=== PATIENT | male | born 1965 | race Two or more races ===

== ENCOUNTER → 2021-10-16 15:02 | Outpatient (BNVA) | payer OTHER, SELFPAY | PROVIDERS: PCP Internal Medicine; Visit Provider Nurse Practitioner Family | DX: G20 Parkinson's disease (principal); R26.9 Unspecified abnormalities of gait and mobility | CPT/HCPCS: 99212 ==

== ENCOUNTER → 2022-04-02 14:14 | Outpatient (BNVA) | payer OTHER, SELFPAY | PROVIDERS: PCP Internal Medicine; Visit Provider Nurse Practitioner Family | DX: G20 Parkinson's disease (principal); R26.9 Unspecified abnormalities of gait and mobility | CPT/HCPCS: 99212 ==

== ENCOUNTER 2022-12-25 12:54 | Outpatient (AMB) | payer OTHER, SELFPAY ==
--- NOTE | 2022-12-25 13:05 | A.OFFVIS_ITS ---
Intake Vital Signs 12/25/22 13:07 Height 5 ft 6 in Weight 148 lb BMI 23.9 Pulse 86 Pulse Source Pulse Oximeter Pulse Oximetry (%) 98 Oxygen Delivery Method Room Air Intake Visit Reasons: Follow up for Parkinsons - Confirmed Intake Note: Patient presents for follow up parkinson's. patient states I want to talk to her about the surgery. Allergies No Known Allergies Allergy (Verified 12/25/22 13:09) Medication List - Last Reconciled 12/25/22 by BROOKE Hurley amantadine HCl 100 mg PO BID 30 days cholecalciferol (vitamin D3) 50 mcg PO DAILY clonazepam 0.25 mg PO BEDTIME PRN gabapentin 100 - 300 mg (1 - 3 x 100 mg) PO BEDTIME 30 days oxycodone-acetaminophen 5-325 mg 1 tab PO DAILY HPI HPI Comments History of Present Illness Details 57-yr-old male presents for f/u visit, accompanied by his partner. Pt denies any significant interval medical history changes. Pt's current PD medication regimen: Amantadine 100mg bid Pt continues to be very shaky. He had one fall- his chair back broke. He continues to have BLE, more so LLE, numbness especially when sitting for a while. He can be slow, stiff, again if sitting too long. Riding his bicycles in his driveway is helpful. He has been having some neck tightness and lower occipital headache. Often responds to Advil. [facility] Medical History Anxiety Vitamin D deficiency Social History Alcohol intake: never Patient Tobacco Use Status: Never used Tobacco Review of Systems Const All systems reviewed & are unremarkable except as noted in HPI and below Physical Exam Vital Signs: Last Vital Signs Pulse 86 12/25/22 13:07 Pulse Ox 98 12/25/22 13:07 Oxygen Delivery Method Room Air 12/25/22 13:07 BMI result Body Mass Index 23.9 Const General: cooperative and no acute distress Resp Effort & Inspection: normal respiratory effort and able to speak in complete sentences Neuro Other: Expression: Decreased expression and blink Voice: Soft voice Tremor: BUE rest and postural tremor Tone: BUE tone Dyskinesia: None FFM: Bradykinesia, more so on left Foot taps: Bradykinesia, more so on left Gait: Slow to stand, stooped, no arm swing, short steps with bent knees, steady w/ cane. Psych: Pleasant affect General: patient oriented x3 Assessment & Plan Assessment & Plan (1) Parkinson's disease: Code(s): G20 - Parkinson's disease (2) Tremor: Code(s): R25.1 - Tremor, unspecified (3) Gait difficulty: Code(s): R26.9 - Unspecified abnormalities of gait and mobility (4) Cervicalgia: Code(s): M54.2 - Cervicalgia Plan Trial trihexyphenidal 1mg qd x;s 1 wk, then 1 mg bid x's 1 wk, then 1mg tid. Gabapentin 100-300mg qhs. Continue Amantadine 100mg bid. Pt advised to undergo baseline neuro-psych eval- to assess eligibility for DBS. Monitor BLE numbness- pt declines further work-up For neck pain and headache- offered PT, pt declined. May yun prn Advil, warm packs x's 20 min. Previous trials- Rytary- caused GI upset and nausea. CD-LD- not tolerated. Future considerations: Gocovri. Gallegos. Follow-up in 3 months. Orders: Referrals Neuropsychiatry Referral G20 - Parkinson's disease Medications: New trihexyphenidyl 1/2 tab daily x's 1 week, then 1/2 tab bid x's 1 week, then 1/2 tab tid orally .; give with food (meal/snack) 30 days 45 tabs 3RF Coding Level of Care Code Est Pt Level 4 (60216) Diagnoses Parkinson's disease G20 Tremor R25.1 Gait difficulty R26.9 Cervicalgia M54.2
[2022-12-25 13:07] VITALS: PULSE 86; O2SAT 98; BMI 23.9
== END 2022-12-25 13:46 | disposition home or self-care (01) ==
PROVIDERS: Visit Provider Nurse Practitioner Family
DX: G20 Parkinson's disease (principal); R25.1 Tremor, unspecified; R26.9 Unspecified abnormalities of gait and mobility; M54.2 Cervicalgia
CPT/HCPCS: 99214

== ENCOUNTER → 2022-12-25 12:54 | Outpatient (BNVA) | payer OTHER, SELFPAY | PROVIDERS: Visit Provider Nurse Practitioner Family | DX: G20 Parkinson's disease (principal); M54.2 Cervicalgia; Z79.899 Other long term (current) drug therapy | CPT/HCPCS: 99212 ==

== ENCOUNTER 2023-05-26 13:42 | Outpatient (AMB) | payer OTHER, SELFPAY ==
--- NOTE | 2023-05-26 14:01 | MHC.OFFVIS ---
Intake Vital Signs 05/26/23 14:07 Height 5 ft 6 in Weight 151 lb BMI 24.4 BP 126/84 Blood Pressure Location Rt brachial Position Sitting Pulse 97 Pulse Source Pulse Oximeter Pulse Oximetry (%) 106 H Oxygen Delivery Method Room Air Intake Visit Reasons: 3m Follow up for Parkinsons - CONF Intake Note: Patient presents for follow up parkinson's. Patient states Everything's the same, nothing to report Allergies No Known Allergies Allergy (Verified 05/26/23 14:08) Medication List - Last Reconciled 05/26/23 by BROOKE Hurley amantadine HCl 150 mg (1.5 x 100 mg) PO BID 30 days benztropine 0.5 mg orally qd x's 1 week, then bid; 30 days cholecalciferol (vitamin D3) 50 mcg PO DAILY clonazepam 0.25 mg PO BEDTIME PRN gabapentin 100 - 300 mg (1 - 3 x 100 mg) PO BEDTIME 30 days oxycodone-acetaminophen 5-325 mg 1 tab PO DAILY HPI HPI Comments History of Present Illness Details 57-yr-old male presents for f/u visit, accomapnied by his . Pt denies any significant interval medical history changes. Pt's current PD medication regimen: Amantadine 100mg qam and 50mg q afternoon. Pt did not tolerate Artane, and the was tried on Benzotropine which pt did not tolerate. Pt continues to have significant tremor. He can be slow He can be stiff No hallucinations. Gait is slow. Trying to be active, Using Gabapentin for BLE paresthesias. [facility] Medical History (Updated 06/07/23 @ 22:42 by BROOKE Hurley) Parkinson's disease Vitamin D deficiency Anxiety Social History Alcohol intake: never Patient Tobacco Use Status: Never used Tobacco Review of Systems Const All systems reviewed & are unremarkable except as noted in HPI and below Physical Exam Vital Signs: Last Vital Signs Pulse 97 05/26/23 14:07 BP 126/84 05/26/23 14:07 Pulse Ox 106 H 05/26/23 14:07 Oxygen Delivery Method Room Air 05/26/23 14:07 BMI result Body Mass Index 24.4 Const General: cooperative and no acute distress Resp Effort & Inspection: normal respiratory effort and able to speak in complete sentences Neuro Other: General: A&O x's 3 Expression: Decreased expression and blink Voice: Soft voice Tremor: BUE rest and postural tremor Tone: BUE tone Dyskinesia: None FFM: Bradykinesia, more so on left Foot taps: Bradykinesia, more so on left Gait: Slow to stand, stooped, no arm swing, short steps with bent knees, steady w/ cane. Psych: Pleasant affect Assessment & Plan Assessment & Plan (1) Parkinson's disease without dyskinesia: Code(s): G20.A1 - Parkinson's disease without dyskinesia, without mention of fluctuations (2) Tremor: Code(s): R25.1 - Tremor, unspecified (3) Gait difficulty: Code(s): R26.9 - Unspecified abnormalities of gait and mobility Plan Stop trihexyphenidal and benzotropine- not tolerated. Increase Amantadine up to 150mg bid Gabapentin 100-300mg qhs. Pt advised to undergo baseline neuro-psych eval- to assess eligibility for DBS- on wait list. Monitor BLE numbness- pt declines further work-up For neck pain and headache- monitor. Previous trials- Rytary- caused GI upset and nausea. CD-LD- not tolerated. Future considerations: Jenny. Follow-up in 3-4 months. Medications: Refilled amantadine HCl 150 mg (1.5 x 100 mg) PO BID 90 tabs 5RF 30 days Coding Level of Care Code Est Pt Level 4 (49719) Diagnoses Parkinson's disease without dyskinesia G20.A1 Tremor R25.1 Gait difficulty R26.9
[2023-05-26 14:07] VITALS: BP 126/84; PULSE 97; O2SAT 106; BMI 24.4
== END 2023-05-26 14:37 | disposition home or self-care (01) ==
PROVIDERS: PCP Internal Medicine; Visit Provider Nurse Practitioner Family
DX: G20.A1 Parkinson's disease without dyskinesia, without mention of fluctuations (principal); R26.9 Unspecified abnormalities of gait and mobility
CPT/HCPCS: 99214

== ENCOUNTER → 2023-05-26 13:42 | Outpatient (BNVA) | payer OTHER, SELFPAY | PROVIDERS: PCP Internal Medicine; Visit Provider Nurse Practitioner Family | DX: G20.A1 Parkinson's disease without dyskinesia, without mention of fluctuations (principal); R26.9 Unspecified abnormalities of gait and mobility; Z79.899 Other long term (current) drug therapy | CPT/HCPCS: 99212 ==

== ENCOUNTER 2024-05-12 12:52 | Outpatient (AMB) | payer OTHER, SELFPAY ==
[2024-05-12 13:03] VITALS: BP 126/78; PULSE 106; O2SAT 98; BMI 25.4
--- NOTE | 2024-05-12 13:03 | A.OFFVIS_ITS ---
Vital Signs 05/12/24 13:03 Height 5 ft 6 in Weight 157 lb 8 oz BMI 25.4 BP 126/78 Blood Pressure Location Lt brachial Position Sitting Pulse 106 H Pulse Source Pulse Oximeter Pulse Oximetry (%) 98 Oxygen Delivery Method Room Air Intake Visit Reasons: Follow up Allergies No Known Allergies Allergy (Verified 05/12/24 13:08) Medication List - Last Reconciled 05/12/24 by BROOKE Hurley amantadine HCl 150 mg (1.5 x 100 mg) PO BID 30 days benztropine 0.5 mg orally qd x's 1 week, then bid; 30 days cholecalciferol (vitamin D3) 50 mcg PO DAILY clonazepam 0.25 mg PO BEDTIME PRN gabapentin 100 - 300 mg (1 - 3 x 100 mg) PO BEDTIME 30 days oxycodone-acetaminophen 5-325 mg 1 tab PO DAILY HPI Comments Details: 58-yr-old male presents for f/u visit for Parkinson's disease, accomapnied by his . Pt denies any significant interval medical history changes. Pt's current PD medication regimen: Amantadine 150mg bid. ADL's: Needs assist Swallowing: Needs to eat slowly Drooling: Denies Orthostatic lightheadedness: Denies Constipation: Denies Urinary symptoms: States he is taking an OAB tx. Tremor: Continues to have tremor Dyskinesia: None Stiffness: His arms and legs become stiff, tight, and numbness- like falling asleep. Gabapentin for BLE paresthesias. His neck can be tight and sore. Gait changes: States his walking is ok- sometimes walks better than others. Freezing: Sometimes he becomes stuck in the shower- he is awaiting a shower chair from [facility]. Falls: He states he falls all the time, but falls and gets up. May have difficulty going up the stairs. Mood: He can be anxious Hallucinations: Denies Memory: No issues Sleep: Sleeping well Exercise: Riding a pedal bicycle in his room. [facility] Medical History Parkinson's disease Vitamin D deficiency Anxiety Social History Alcohol intake: never Patient Tobacco Use Status: Never used Tobacco Physical Exam Vital Signs: Last Vital Signs Pulse 106 H 05/12/24 13:03 BP 126/78 05/12/24 13:03 Pulse Ox 98 05/12/24 13:03 Oxygen Delivery Method Room Air 05/12/24 13:03 BMI result Body Mass Index 25.4 Const General: cooperative and no acute distress Resp Effort & Inspection: normal respiratory effort and able to speak in complete sentences Neuro Other: General: A&O x's 3 Expression: Decreased expression and blink Voice: Soft voice Tremor: BUE rest and postural tremor Tone: BUE tone, more so on left Dyskinesia: None FFM: Bradykinesia, more so on left Foot taps: Bradykinesia, more so on left Posture: Patient has more stooped today w/ signs of anterocollis. Gait: Slow to stand, stooped, no arm swing, short steps with bent knees, steady w/ cane. Psych: Pleasant affect Assessment & Plan Assessment & Plan (1) Parkinson's disease without dyskinesia: Code(s): G20.A1 - Parkinson's disease without dyskinesia, without mention of fluctuations Category: Medical (2) Tremor: Code(s): R25.1 - Tremor, unspecified Category: Medical (3) Gait difficulty: Code(s): R26.9 - Unspecified abnormalities of gait and mobility Category: Medical Plan Increase Amantadine from 150mg bid to 150mg bid (am and early afternoon/afternoon) and 100mg q afternoon. Resume Gabapentin 100-300mg qhs (or 100mg tid) for paresthesias, headache, and neck pain. Pt believes he had baseline neuro-psych eval- will try to locate results. Offered PT- pt declines at this time. Patient encouraged to increase regular physical activity, and to work on his posture and upper body range of motion. Monitor BLE numbness- pt declines further work-up Previous trials- Rytary- caused GI upset and nausea. CD-LD- not tolerated. Trihexyphenidal and benzotropine- not tolerated. Future considerations: Gocovri. Vyalev- may be better tolerated than oral CD-LD. Pt to follow-up in 6 months or sooner prn. Medications: Changed From amantadine HCl 150 mg (1.5 x 100 mg) PO BID 30 days 90 tabs 6RF To amantadine HCl 150mg bid (early and late am) and 100mg qd in afternoon orally .; 120 tabs 6RF 30 days Refilled gabapentin 100 - 300 mg (1 - 3 x 100 mg) PO BEDTIME 90 caps 6RF 30 days Discontinued benztropine Discontinued Reason: Doctor's Order 0.5 mg orally qd x's 1 week, then bid; 30 days 30 tabs 1RF Scribe Plan - Not visible on output: Discussed importance of regular physical activity for management of PD s/s, such as walking, cycling, boxing. Discussed benefits of dopaminergic therapies, such as reduced tremor and improved motor symptoms. Discussed potential adverse effects of dopaminergic therapies, including but not limited to nause/GI upset, orthostatic lightheadedness, dyskineisas, sleepiness, hallucinations. Pt is advised to establish care with a tie up worker due to slight increase risk of melanoma seen in patient's with Parkinson's disease. Coding Level of Care Code Est Pt Level 4 (40614) Diagnoses Parkinson's disease without dyskinesia G20.A1 Tremor R25.1 Gait difficulty R26.9
== END 2024-05-12 14:00 | disposition home or self-care (01) ==
PROVIDERS: PCP Internal Medicine; Visit Provider Nurse Practitioner Family
DX: G20.A1 Parkinson's disease without dyskinesia, without mention of fluctuations (principal); R26.9 Unspecified abnormalities of gait and mobility
CPT/HCPCS: 99214

== ENCOUNTER → 2024-05-12 12:52 | Outpatient (BNVA) | payer OTHER, SELFPAY | PROVIDERS: PCP Internal Medicine; Visit Provider Nurse Practitioner Family | DX: G20.A1 Parkinson's disease without dyskinesia, without mention of fluctuations (principal); R26.9 Unspecified abnormalities of gait and mobility | CPT/HCPCS: 99212 ==

== ENCOUNTER 2024-11-15 13:27 | Outpatient (AMB) | payer OTHER, SELFPAY ==
[2024-11-15 13:48] VITALS: BMI 24.4
--- NOTE | 2024-11-15 13:48 | A.OFFVIS_ITS ---
Vital Signs 11/15/24 13:48 Height 5 ft 6 in Weight 151 lb BMI 24.4 Intake Visit Reasons: 6 mo follow up [place] Required: No Accompanied by: Spouse Allergies No Known Allergies Allergy (Verified 11/15/24 13:52) Medication List - Last Reconciled 11/15/24 by BROOKE Hurley amantadine HCl 150mg bid (early and late am) and 100mg qd in afternoon orally .; 30 days cholecalciferol (vitamin D3) 50 mcg PO DAILY clonazepam 0.25 mg PO BEDTIME PRN gabapentin 100 - 300 mg (1 - 3 x 100 mg) PO BEDTIME 30 days oxycodone-acetaminophen 5-325 mg 1 tab PO DAILY ropinirole 0.25 mg PO TID 30 days HPI Comments Details: 58-yr-old male presents for f/u visit for Parkinson's disease, accomapnied by his . Pt denies any significant interval medical history changes. Pt reports his PD s/s are stable. After last visit, he did increase the amantadine to 200 mg twice a day. Pt's current PD medication regimen: Amantadine 200mg bid. ADL's: Needs assist Swallowing: Needs to eat slowly Drooling: Denies Orthostatic lightheadedness: Denies Constipation: Denies Urinary symptoms: States he is taking an OAB tx. Tremor: Continues to have tremor Dyskinesia: None Stiffness: His arms and legs become stiff, tight, and numbness, notices more so when using his bike- like falling asleep. Gabapentin has been helpful for BLE paresthesias and neck tightness and soreness Gait changes: States his walking is ok- sometimes walks better than others. Freezing: He is still prone to becoming stuck. Falls: He states he still is prone to falls, but falls and gets up. Mood: He can be anxious. Patient notes that the last time he flight, he had a significant anxiety attack, which subsided when he took 1 of his 's anxiety medications, however he has been fearful to fly since. However he notes that his would really like to be able to take vacations again. Hallucinations: Denies Memory: No issues Sleep: Sleeping well Exercise: Riding a pedal bicycle in his room. [facility] Medical History Parkinson's disease Vitamin D deficiency Anxiety Social History Alcohol intake: never Patient Tobacco Use Status: Never used Tobacco Physical Exam Vital Signs: BMI result Body Mass Index 24.4 Const General: cooperative and no acute distress Resp Effort & Inspection: normal respiratory effort and able to speak in complete sentences Neuro Other: General: A&O x's 3 Expression: Decreased expression and blink Voice: Soft voice, as he talks longer there is mild stuttering/stumbling on his words. Tremor: BUE rest and postural tremor Tone: BUE tone, more so on left. BLE tone, most notable in ankles Dyskinesia: None FFM: Bradykinesia, more so on left Foot taps: Bradykinesia, more so on left Posture: Stooped w/ mild anterocollis. Gait: Slow to stand, stooped, no arm swing, short steps with bent knees, steady w/ cane. Psych: Pleasant affect Assessment & Plan Assessment & Plan (1) Parkinson's disease without dyskinesia: Code(s): G20.A1 - Parkinson's disease without dyskinesia, without mention of fluctuations Category: Medical Qualifiers: Fluctuating manifestations: without fluctuating manifestations Qualified Code(s): G20.A1 - Parkinson's disease without dyskinesia, without mention of fluctuations (2) Tremor: Code(s): R25.1 - Tremor, unspecified Category: Medical (3) Gait difficulty: Code(s): R26.9 - Unspecified abnormalities of gait and mobility Category: Medical Plan Start ropinirole 0.25 mg daily, then slowly increase to 0.25 mg twice a day, and then again to 0.25 mg 3 times a day. Continue Amantadine 200 mg twice a day. Continue Gabapentin 100-300mg qhs (or 100mg tid) for paresthesias, headache, and neck pain. Were unable to locate any neuro-psych evaluation reports- we will request baseline neuropsychological evaluation to eval if patient would be a candidate for deep brain stimulation. Patient encouraged to increase regular physical activity, and to increase lower extremity stretching exercises Monitor BLE numbness- pt declines further work-up Previous trials- Rytary- caused GI upset and nausea. CD-LD- not tolerated. Trihexyphenidal and benzotropine- not tolerated. Future considerations: Gocovri. Vyalev- may be better tolerated than oral CD-LD. Note: If patient needs to fly in the future, we will provide small supply of anxiolytic for flying induced anxiety. Pt to follow-up in 6 months or sooner prn. Orders: Referrals Neuropsychiatry Referral G20.A1 - Parkinson's disease without dyskinesia, without mention of fluctuations Medications: New ropinirole 0.25 mg PO TID 90 tabs 6RF 30 days Changed From amantadine HCl 150mg bid (early and late am) and 100mg qd in afternoon orally .; 30 days 120 tabs 6RF To amantadine HCl 200 mg (2 x 100 mg) PO BID 120 tabs 6RF 30 days Refilled gabapentin 100 - 300 mg (1 - 3 x 100 mg) PO BEDTIME 90 caps 6RF 30 days Coding Level of Care Code Est Pt Level 4 (91483) Complex EM visit Add On G2211 Diagnoses Parkinson's disease without dyskinesia or fluctuating manifestations G20.A1 Fluctuating manifestations: without fluctuating manifestations Tremor R25.1 Gait difficulty R26.9
--- OUTSIDE RECORDS SUMMARY | 2024-11-15 14:35 | XMS_ITS | Clinical Summary ---
Author Organization 175 [facility] Address [address] [place] [address] Phone Care Team Providers Care Kardex Clerk Name Role Phone Lina Polanco MD Primary Care Provider [phone] Allergies No known active allergies Medications gabapentin (NEURONTIN) 100 mg capsule TAKE 1 TO 3 CAPSULES BY MOUTH AT BEDTIME Active FLUoxetine (PROzac) 10 mg capsule Take 1 capsule (10 mg total) by mouth 1 (one) time each day in the morning. Active fenofibrate (LOFIBRA) 54 mg tablet Take 1 tablet (54 mg total) by mouth. 03/29/20 19 Active rasagiline (AZILECT) 0.5 mg tablet Take 1 tablet (0.5 mg total) by mouth. 12/30/19 16 Active tamsulosin (FLOMAX) 0.4 mg 24 hr capsule Take 1 capsule (0.4 mg total) by mouth. 02/10/20 24 Active trihexyphenidyL (ARTANE) 2 mg tablet 03/07/20 23 Active clonazePAM (KlonoPIN) 0.5 mg tablet TK 1/2 T PO BID UTD PRN 02/27/20 19 Active cyanocobalamin (VITAMIN B-12) 1,000 mcg tablet Take 1 tablet (1,000 mcg total) by mouth 1 (one) time each day. 02/10/20 24 Active cholecalciferol (VITAMIN D-3) 50 mcg (2,000 unit) tablet Take 1 tablet (2,000 Units total) by mouth 1 (one) time each day. 07/29/19 24 Active benztropine (COGENTIN) 0.5 mg tablet TAKE 1 TABLET BY MOUTH DAILY FOR 1 WEEK THEN TWICE DAILY 02/03/20 23 Active amantadine (SYMMETREL) 100 mg tablet TAKE 1 AND 1/2 TABLET BY MOUTH TWICE DAILY FOR 30 DAYS Active incontinence pad, liner, disp pad INCONTINENCE SUPPLY DISPOSABLE (DISPOSABLE UNDERPADS 30 X36 ) MISC 1 Each by Does not apply route daily. 09/11/19 24 Active rosuvastatin (CRESTOR) 10 mg tablet Take 1 tablet (10 mg total) by mouth 1 (one) time each day. 90 tablet 1 09/07/19 25 Active oxyCODONE-acetamin ophen (PERCOCET) 5-325 mg per tabletIndications: Parkinson's disease with dyskinesia, unspecified whether manifestations fluctuate (CMS/HCC V24, CMS/HCC V28),Sciatica, unspecified laterality Take 1 tablet by mouth 1 (one) time each day. Max Daily Amount: 1 tablet 28 tablet 10/26/19 25 Active oxyCODONE-acetamin ophen (PERCOCET) 5-325 mg per tabletIndications: Parkinson's disease with dyskinesia, unspecified whether manifestations fluctuate (CMS/HCC V24, CMS/HCC V28),Sciatica, unspecified laterality Take 1 tablet by mouth 1 (one) time each day. Max Daily Amount: 1 tablet 28 tablet 09/22/19 25 025 Discontin ued(Reord er) Active Problems Problem Noted Date Diagnosed Date Parkinson's disease ([facility] V24, [facility] V28) 0 09/25/2017 Vitamin B12 deficiency 09/25/2017 Essential hypertriglyceridemia 06/02/2017 Depression with anxiety 05/22/2017 Sciatica 06/08/2015 Vitamin D deficiency 01/08/2014 Tremor 09/26/2013 Encounters Date Type Department Care Team Description 10/20/2024 Telephone Internal Medicine [address] [phone] Lina Polanco MD 08/30/2024 Telephone Internal Medicine [address] [phone] Mami Gooden [place] faxed order (L&C) 08/26/2024 Telephone Internal Medicine [address] [phone] Mami Gooden [place] faxed order (L&C) 08/22/2024 Telephone Internal Medicine - [place] [address] [facility] [address] [place] [address] Jayla Montemayor MA Med Refill from Last 3 Months Medical History Medical History Date Comments Depression with anxiety 05/22/2017 DX:Depre ssion with anxiety Essential hypertriglyceridemia 06/02/2017 D X:Essential hypertriglyceridemia Parkinson's disease (CMS/HCC V24, CMS/HCC V28) 09/25/2017 DX:Parkinson's disease (HCC) Sciatica 06/08/2015 DX:Sciatica Tremor 09/26/2013 DX:Tremor Vitamin B12 deficiency 09/25/2017 DX:Vitami n B12 deficiency Vitamin D deficiency 01/08/2014 DX:Vitamin D deficiency Social History Tobacco Use Types Packs/Day Years Used Date Smoking Tobacco: Former Smokeless Tobacco: Never Alcohol Use Standard Drinks/Week Comments No 0 (1 standard drink = 0.6 oz pur e alcohol) Sex and Gender Information Value Date Recorded Sex Assigned at Not on file Legal Sex Male 2:00 AM EST Gender Identity Not on file Sexual Orientation Not on file Obstetrics History Last Filed Vital Signs Vital Sign Reading Time Taken Comments Blood Pressure 124/80 07/19/2024 1:17 PM EDT Pulse 138 07/19/2024 1:17 PM EDT Temperature 36.6 C (97.8 F) 07/19/2024 1:17 PM EDT Respiratory Rate - - Oxygen Saturation 95% 07/19/2024 1:17 PM EDT Inhaled Oxygen Concentration - - Weight 66.3 kg (146 lb 3.2 oz) 07/19/2024 1:17 P M EDT Height 167.6 cm (5' 6 ) 07/19/2024 1:17 PM EDT Body Mass Index 23.6 07/19/2024 1:17 PM EDT Plan of Treatment Upcoming Encounters Date Type Department Care Team (Late st Contact Info) Description 12/20/2024 1:00 PM EDT Office Visit Internal Medicine [facility] [address] [facility] [address] [place] [address] Lina Polanco MD 175 [facility] [address] [place] [address] Health Maintenance Due Date Last Done Comments Hepatitis B Vaccines (1 of 3 - 19+ 3-dose series) 11/30/1986 Pneumococcal Vaccine: 50+ Years (1 of 1 - PCV) 11/30/2017 Zoster Vaccines (1 of 2) 11/30/2017 Colorectal Cancer Screening: Colonoscopy 04/05/2022 HIV Screening 04/05/2022 Hepatitis C Screening 04/05/2022 Medicare Annual Wellness Visit 04/05/2022 Social Influencers of Health Screening 04/05/2022 COVID-19 Vaccine (2 - 2023-2 5 season) 2023 02/06/2021 Depression Screening 04/27/2024 Influenza Vaccine (#1) 2024 Cholesterol Screening (Lipid Panel) 02/11/2029 02/12/2024, 02/12/2024 DTaP,Tdap,and Td Vaccines (2 - Td or Tdap) 01/04/2031 01/04/2021 HIB Vaccines Aged Out No longer eligi ble based on patient's age to complete this topic HPV Vaccines Aged Out No longer eligi ble based on patient's age to complete this topic Hepatitis A Vaccines Aged Out No long er eligible based on patient's age to complete this topic IPV Vaccines Aged Out No longer eligi ble based on patient's age to complete this topic MMR Vaccines Aged Out No longer eligi ble based on patient's age to complete this topic Meningococcal ACWY Vaccine Aged Out N o longer eligible based on patient's age to complete this topic Meningococcal B Vaccine Aged Out No l onger eligible based on patient's age to complete this topic RSV Immunization Patients Under 20 months Aged Out No longer eligible b ased on patient's age to complete this topic Varicella Vaccines Aged Out No longer eligible based on patient's age to complete this topic Procedures Procedure Name Priority Date/Time Associated Diagnosis Comments LIPID PANEL Routine 02/12/2024 from Last 3 Months or Most Recently Relevant to Health Maintenance Results * Lipid panel (02/12/2024) LDL/HDL Ratio 2 0 - 4 Triglycerides 128 0 - 150 mg/dL Cholesterol 138 0 - 200 mg/dL HDL 59 >=40 mg/dL LDL Cholesterol 54 0 - 100 mg/dL Blood Venous blood specimen / Unknown us Historical Provider LAB BLOOD ORDERABLES Sherie l Result from Last 3 Months or Most Recently Relevant to Health Maintenance Insurance MEDICAID - [place] [employer] MEDICARE Member Subscriber Plan / Payer (Ef fective 2018-Present) Name:Vance Shen Relation to Subscriber:Self Name:Vance Shen Payer ID:[id number] Group ID:[id number] Type:Not on file Address: [address] [place] [id number] Care Teams Kardex Clerk Relationship Specialty Start Date End Date Lina Polanco MD [address] [address] PCP - General Internal Medicine 02/25/18
== END 2024-11-15 14:26 | disposition home or self-care (01) ==
LOC: HO.HSMS 13:27
PROVIDERS: PCP Internal Medicine; Visit Provider Nurse Practitioner Family
DX: G20.A1 Parkinson's disease without dyskinesia, without mention of fluctuations (principal); R25.1 Tremor, unspecified; R26.9 Unspecified abnormalities of gait and mobility
CPT/HCPCS: 99214; G2211

== ENCOUNTER → 2024-11-15 13:27 | Outpatient (BNVA) | payer OTHER, SELFPAY | PROVIDERS: PCP Internal Medicine; Visit Provider Nurse Practitioner Family | DX: G20.A1 Parkinson's disease without dyskinesia, without mention of fluctuations (principal); R26.9 Unspecified abnormalities of gait and mobility | CPT/HCPCS: 99212 ==